=== PATIENT | female | born 1965 | race African-American/Black ===

== ENCOUNTER → 2017-02-07 | Outpatient (CLI) | payer BC ==
[~2017-02-07] MED LIST: REGADENOSON 0.4 MG/5 ML DISP.SYRIN. IV ONE
--- NOTE | 2017-02-10 09:52 | PCVCIMAG ---
APPROVED REPORT Study performed: 02/07/2017 12:45:32 EXAM: Comprehensive 2D, Doppler, and color-flow Echocardiogram Patient Location: Echo lab Status: routine BSA: 2.12 HR: 75 bpmBP: 118/74 mmHg Rhythm: NSR Other Information Study Quality: Adequate Risk Factors: Cardiac Risk Factors: HTN Indications Dyspnea Chest Pain 2D Dimensions LVEF(%): 53.64 (>50%) IVSd: 9.84 (7-11mm) LVDd: 44.92 mm PWd: 10.18 (7-11mm) LVDs: 32.54 (25-40mm) Left Atrium: 35.92 (27-40mm) Aortic Root: 31.97 mm LV Single Plane 4CH: 57.57 % LV Single Plane 2CH: 61.47 %Lee's LVEF: 59.52 % Biplane EF: 59.1 % Volumes Left Atrial Volume (Systole) Single Plane 4CH: 47.44 mLSingle Plane 2CH: 63.96 mL LA ESV Index: 27.00 mL/m2 Aortic Valve AoV Peak Loco.: 1.46 m/s AO Peak Gr.: 8.54 mmHgLVOT Max P.81 mmHg LVOT Max V: 0.84 m/s Mitral Valve E/A Ratio: 1.4 MV Decel. Time: 233.91 ms MV E Max Loco.: 0.69 m/s MV A Loco.: 0.48 m/s IVRT: 103.81 ms Pulmonary Valve PV Peak Loco.: 1.04 m/sPV Peak Gr.: 4.29 mmHg Pulmonary Vein P Vein S: 0.31 m/sP Vein A: 0.30 m/s P Vein D: 0.37 m/sP Vein A Dur.: 141.9 msec P Vein S/D Ratio: 0.84 Tricuspid Valve TR Peak Loco.: 2.60 m/s TR Peak Gr.: 27.02 mmHg Left Ventricle The left ventricle is normal size. There is normal LV segmental wall motion. There is normal left ventricular wall thickness. Left ventricular systolic function is normal. The left ventricular ejection fraction is within the normal range. LVEF is 60%. Grade I - abnormal relaxation pattern. Right Ventricle The right ventricle is normal size. The right ventricular systolic function is normal. Atria The left atrium size is normal. Right atrium is at the upper limits of normal. Aortic Valve The aortic valve is normal in structure. No aortic regurgitation is present. There is no aortic valvular stenosis. Mitral Valve The mitral valve is normal in structure. Trace mitral regurgitation. No evidence of mitral valve stenosis. Tricuspid Valve The tricuspid valve is normal in structure. Mild tricuspid regurgitation with PAP of 34 mmHg. Pulmonic Valve The pulmonary valve is normal in structure. Trace pulmonic regurgitation. Great Vessels The aortic root is normal in size. IVC is normal in size and collapses with >50% inspiration Pericardium There is no pericardial effusion. <Conclusion> The left ventricle is normal size. LVEF is 60%. The aortic valve is normal in structure. The mitral valve is normal in structure. Trace mitral regurgitation. The tricuspid valve is normal in structure. Mild tricuspid regurgitation with PAP of 34 mmHg. The pulmonary valve is normal in structure. Trace pulmonic regurgitation.
== END | disposition home or self-care (01) ==
LOC: PCVCIMAG 13:06
PROVIDERS: ATTEND Internal Medicine
DX: I34.0 Nonrheumatic mitral (valve) insufficiency (principal); I07.1 Rheumatic tricuspid insufficiency; I37.1 Nonrheumatic pulmonary valve insufficiency; I10 Essential (primary) hypertension
CPT/HCPCS: 93306; J2785

== ENCOUNTER → 2017-02-24 | Outpatient (CLI) | payer BC ==
[~2017-02-24] MED LIST changes: +DIAZEPAM 10 MG TABLET. ONE; +IOHEXOL 350 MG/ML 100 ML VIAL. ONE; +IOHEXOL 350 MG/ML 50 ML VIAL. ONE; +IV NORMAL SALINE 500ML BAG 500 ML ONE; +LIDOCAINE 1% Multi-Dose 20 ML VIAL. ONE; +MIDAZOLAM HCL/PF 2 MG/2 ML VIAL. ONE; -REGADENOSON 0.4 MG/5 ML DISP.SYRIN. IV ONE; +fentaNYL PF VIAL 100 MCG/2 ML VIAL ONE
--- NOTE | 2017-02-25 13:01 | PCVCINTER ---
APPROVED REPORT Patient Details Patient Status: Out-Patient Room #: 3 The patient is a 52 year-old Female Event Personnel Alice Ge RN, Parker Bailey MD, Nam Garcias RT(R)(), Sally Medina RT(R) Procedures Performed 1. Left heart catheterization, 2. Selective left and right coronary angiography, measurement of left ventricular end-diastolic pressures Indication Dyspnea, Positive stress test Risk Factors Arterial HypertensionDysplipidemia (Type: 0), Last Creatanine 0.8 Previous Procedures/Diagnoses Hypertension Procedure Narrative The patient was brought electively to the Cardiac Catheterization Laboratory and was prepped and draped in a sterile manner. The right femoral was infiltrated with 1% Lidocaine subcutaneous anesthesia. A 4fr sheath was inserted into the right femoral artery. Coronary angiography was performed using coronary diagnostic catheters. The right coronary system was accessed and visualized with a JR4 Diagnostic catheter. The left coronary system was accessed and visualized with a JL4 Diagnostic catheter. The left ventricle was accessed and visualized with a Pigtail catheter. Hemostasis was obtained with manual pressure following sheath removal without any complications. The patient tolerated the procedure well and there were no complications associated with the procedure. There was no hematoma. Coronary Angiography The patient's coronary anatomy is right dominant. Diagnostic Cath Left MainNormal origin and caliber bifurcates left anterior descending left circumflex is free of significant obstructive lesions LADModerate caliber type III vessel which courses in the anterior interventricular sulcus giving rise to septal and diagonal branches. All are with free of significant obstructive lesions without any significant evidence of luminal irregularities CircumflexModerate caliber nondominant vessel courses in the AV groove giving rise to the lateral wall marginal branches free of high-grade disease Right CoronaryModerate caliber dominant vessel. Courses posteriorly to the crux of the heart will race small to moderate posterior descending artery arises with only minimal irregularities noted Left Ventriculography Left Ventriculography was not performed. Hemodynamics The aortic pressure is 135/49 mmHg with a mean of 79 mmHg. The left ventricular pressure is 112/2 mmHg with a mean of 10 mmHg. Conclusion 1. Essentially normal coronary arteries 2. Normal hemodynamics Recommendations Cardiac Risk Reduction Program
== END | disposition home or self-care (01) ==
LOC: PCVCINTER 09:44
PROVIDERS: ATTEND Internal Medicine
DX: R94.39 Abnormal result of other cardiovascular function study (principal); I10 Essential (primary) hypertension; E78.5 Hyperlipidemia, unspecified
CPT/HCPCS: 93458; 99152; C1751; C1769; C1894; J1644; J2250; J3010; J7040; Q9967